=== PATIENT | female | born 1965 | race Caucasian/White ===

== ENCOUNTER 2017-07-12 19:53 | Emergency (ER) | payer MEDICARE, OTHER ==
[~2017-07-12] VITALS: Ht 160 cm; Wt 68.6 kg
[~2017-07-12 19:53] MED LIST: GLIP10TA95 PO; LOSA100T7 PO; METF-406 PO; SIMV20TA2 PO
[2017-07-12 19:57] VITALS: Ht 160 cm; Wt 68.6 kg
[2017-07-12] MEDS ORDERED: DOXY100T20 PO (21:34)
[2017-07-12] MEDS ORDERED: IBUP-1542 PO (21:34)
--- NOTE | 2017-07-12 21:37 | ERD ---
ER Documentation Chief Complaint Chief Complaint abscess vaginal area HPI This 52-year-old female presents with a proximal 40 history of pain swelling and redness in 2 areas of her vagina. She has no discharge, bleeding previous history of same. ROS All systems reviewed and are negative except as per history of present illness. Medications Home Meds Active Scripts Ibuprofen* (Motrin*) 600 Mg Tab, 600 MG PO Q6, #15 TAB Prov:MICHELLE GARCIA MD 07/12/17 Doxycycline Hyclate* (Doxycycline Hyclate*) 100 Mg Tablet.dr, 100 MG PO BID for 7 Days, TAB Prov:MICHELLE GARCIA MD 07/12/17 Reported Medications Glipizide* (Glucotrol*) 10 Mg Tablet, 20 MG PO BID 01/14/14 Simvastatin (Simvastatin) 20 Mg Tablet, 20 MG PO HS 01/14/14 Losartan Potassium* (Losartan Potassium*) 100 Mg Tablet, 100 MG PO DAILY 01/14/14 Metformin Hcl* (Metformin Hcl* ER) 1,000 Mg Tab.er.24, 1000 MG PO BID 01/14/14 Allergies Allergies: Coded Allergies: No Known Allergy (Unverified , 01/14/14) PMhx/Soc History of Surgery: Yes (GALL BLADDER SX, OVARIAN SX) Anesthesia Reaction: No Hx Neurological Disorder: No Hx Respiratory Disorders: No Hx Cardiac Disorders: Yes (HTN, HIGH CHOLESTEROL) Hx Psychiatric Problems: Yes (DEPRESSION) Hx Miscellaneous Medical Probl: Yes (DM) Hx Alcohol Use: No Hx Substance Use: No Hx Tobacco Use: No Smoking Status: Never smoker Physical Exam Vitals Vital Signs Date Time Temp Pulse Resp B/P Pulse Ox O2 Delivery O2 Flow Rate FiO2 07/12/17 19:57 97.8 101 20 147/73 100 Physical Exam Const: [], [id number]. Head: Atraumatic Eyes: Normal Conjunctiva ENT: Normal External Ears, Nose and Mouth. Neck: Full range of motion..~ No meningismus. Resp: Clear to auscultation bilaterally Cardio: Regular rate and rhythm, no murmurs Abd: Soft, non tender, non distended. Normal bowel sounds. Pelvic exam with a jockey room custodian shows some tenderness and swelling on the right external vaginal area as well as the left external vaginal area. No active bleeding or discharge or induration Skin: No petechiae or rashes Back: No midline or flank tenderness Ext: No cyanosis, or edema Neur: Awake and alert Psych: Normal Mood and Affect Procedures/MDM Patient presents with signs of 2 superficial external abscesses in the vaginal area. No evidence of necrotizing fasciitis, sepsis. Procedure note-external vaginal area was prepped with Betadine. 1 cc lidocaine was used for local infiltration. Both lesions were incised with a #11 scalpel. Pus was expressed. Lesions were small and were not packed. Patient tolerated procedure well. Will be treated with ibuprofen doxycycline, wound care, instructions for warm compresses, primary care follow-up and return precautions for worsening redness , fevers, new worsening symptoms. Departure Diagnosis: Primary Impression: Abscess Condition: Stable Patient Instructions: Abscess, Incision And Drainage Additional Instructions: Cheque otro vez con zavala doctor primario en el proximo ham or regresa para mas o nueva simptomas. MICHELLE GARCIA MD Jul 12, 2017 21:37
== END 2017-07-12 21:46 | disposition home or self-care (01) ==
LOC: FTE 19:53
DX: N76.4 Abscess of vulva (principal); I10 Essential (primary) hypertension; E11.9 Type 2 diabetes mellitus without complications; Z79.84 Long term (current) use of oral hypoglycemic drugs